=== PATIENT | female | born 1980 | race Caucasian/White ===

== ENCOUNTER 2020-03-25 14:26 | Emergency (ER) | payer OTHER, SELFPAY ==
--- NOTE | ~2020-03-25 | XR_ITS ---
EXAMINATION: XR ribs RT 2V DATE: 03/25/2020 15:07 INDICATION: Right chest pain. TECHNIQUE: 3 views of the right ribs were obtained. COMPARISON: None. FINDINGS: There is no right-sided pneumonia, pleural effusion, or pneumothorax. The heart size is nor mal. IMPRESSION: 1. No rib fracture. Reviewed, dictated and finalized at location B. [facility] IMPRESSION: 1. No rib fracture.
[2020-03-25 14:38] VITALS: BP 124/88; PULSE 81; RESP 18; TEMP 36.4; O2SAT 100
--- NOTE | 2020-03-25 14:49 | ED.GENADULT ---
HPI - General Adult General Chief complaint: Back Pain/Injury Stated complaint: Flank pain Time Seen by Provider: 03/25/20 14:49 Source: patient and RN notes reviewed Mode of arrival: ambulatory Limitations: no limitations History of Present Illness HPI narrative: 39-year-old female presents concern for right rib pain. Reports the location of the pain changes slightly. She denies any current or new injury or trauma. Reports pain worsened when. She denies she increased her exercise routine. Reports 1 year ago she fell causing pain to that right rib area, however that pain resolved. Denies worsening pain with deep breathing or coughing. She denies nausea, vomiting. She denies fever. Reports occasional right scapula pain without injury. MD complaint: Rib pain Related Data Home Medications Medication Instructions Recorded Confirmed No Home Medications 03/25/20 03/25/20 Allergies Allergy/AdvReac Type Severity Reaction Status Date / Time pseudoephedrine AdvReac Palpitation Verified 03/25/20 14:49 s Review of Systems Review of Systems: Narrative: CONSTITUTIONAL: Denies malaise, chills, sweats, or fever. CARDIOVASCULAR: Denies chest pain, palpitations, or edema. RESPIRATORY: Denies cough or dyspnea. GASTROINTESTINAL: Denies abdominal pain, nausea, vomiting, diarrhea GENITOURINARY: Denies dysuria or hematuria. SKIN: Denies bruising, redness, open skin MUSCULOSKELETAL: Reports right rib pain All systems reviewed & are unremarkable except as noted in HPI and below PMFSH Family History Family History (Updated 07/29/10 @ 10:32 by DOCTOR UNKNOWN) Other Diabetes mellitus Family history of mental disorder Family history of seizure disorder Hypertension Social History Social History Alcohol intake: current Comments At time of signature, agree with nursing past medical, surgical, social and family history. There is no relevant family history pertinent to the presenting complaint Exam Narrative: Exam Narrative: GENERAL: Well-appearing, well-nourished, and in no acute distress. HEAD: Normocephalic, atraumatic. EYES: PERRLA, conjunctivae clear ENT: Nares clear. Mucous membranes moist. NECK: Supple. CHEST: No respiratory distress. Clear to auscultation. No bony deformities, no asymmetry. Speaks in full sentences. HEART: Regular rate and rhythm. No murmur heard. ABDOMEN: Soft, nontender, nondistended, normal active bowel sounds, no palpable masses. Musculoskeletal: No rib tenderness upon palpation, no bruising or erythema SKIN: Warm, dry, no rash, abrasion, laceration. NEURO: Alert and oriented x3. PSYCH: Normal mood and affect Course Course Emergency Course: Patient is aware of diagnosis, understands and agrees to treatment plan. Anticipatory guidance given. Patient agrees to follow-up as directed and is aware of reasons to seek care at the emergency department. Portions of this record may have been created with voice recognition software Vital Signs Vital signs: Vital Signs Temperature 97.5 F L 03/25/20 14:38 Pulse Rate 81 03/25/20 14:38 Respiratory Rate 18 03/25/20 14:38 Blood Pressure 124/88 03/25/20 14:38 Pulse Oximetry 100 03/25/20 14:38 Temperature 97.5 F L 03/25/20 14:38 Pulse Rate 81 03/25/20 14:38 Respiratory Rate 18 03/25/20 14:38 Blood Pressure 124/88 03/25/20 14:38 Pulse Oximetry 100 03/25/20 14:38 Reviewed. Patient has been instructed to follow up with her primary care provider within the next week regarding her elevated blood pressure today. Medical Decision Making MDM Narrative Medical decision making narrative: Exam findings and imaging show no acute concerns or changes; patient is non-toxic appearing and is in no distress. Patient is appropriate for outpatient treatment and follow-up. Vital Signs Vital Signs: Vital Signs Temperature 97.5 F L 03/25/20 14:38 Pulse Rate 81 03/25/20 14:38 Respiratory Rate 18 03/25/20 14:38
== END 2020-03-25 15:28 | disposition home or self-care (01) ==
PROVIDERS: Emergency Provider Nurse Practitioner
DX: R10.11 Right upper quadrant pain (principal); E28.2 Polycystic ovarian syndrome
CPT/HCPCS: 71100; 99213; G0463

== ENCOUNTER 2021-03-29 09:17 | Emergency (ER) | payer OTHER, SELFPAY ==
--- NOTE | ~2021-03-29 | XR_ITS ---
EXAMINATION: XR chest 2V DATE: 03/29/2021 10:18 INDICATION: Cough TECHNIQUE: PA and lateral views of the chest are obtained. COMPARISON: 01/24/2020 FINDINGS: The lungs are free of acute opacities. There is no pleural effusion or pneumothorax. The ca rdiomediastinal silhouette is normal. The visualized bones and soft tissues are unremarkable. IMPRESSION: 1. No acute cardiopulmonary abnormality. Reviewed, dictated and finalized at location A. [employer]
[2021-03-29 09:23] VITALS: BP 127/85; PULSE 109; RESP 16; TEMP 37.6; O2SAT 100
--- NOTE | 2021-03-29 10:11 | ED.URI ---
HPI - URI/Sore Throat General Chief Complaint: Upper Respiratory Infection Stated Complaint: cough with chest pain fever Time Seen by Provider: 03/29/21 09:45 Source: patient and RN notes reviewed Mode of arrival: ambulatory Limitations: no limitations History of Present Illness HPI Narrative: Patient presents today complaining of a 10-day history of cough and sore throat that has been worsening since onset, with a 2-day history of fever up to 101.9. Denies shortness of breath. She has been taking NyQuil and ibuprofen at home without relief. She is fully vaccinated against COVID-19. Denies history of asthma or COPD. She is a non-smoker. MD elicited complaint: fever and cough Related Data Allergies Allergy/AdvReac Type Severity Reaction Status Date / Time pseudoephedrine AdvReac Palpitation Verified 03/25/20 14:49 s Review of Systems Review of Systems: CONSTITUTIONAL: Denies body aches, chills, or sweats.+ Fever EYES: Denies visual changes, redness, or discharge. ENT: Denies rhinorrhea, congestion, or otalgia.+ Sore throat CARDIOVASCULAR: Denies chest pain, palpitations, or edema. RESPIRATORY: Denies dyspnea.+ Cough, chest wall pain GASTROINTESTINAL: Denies abdominal pain, nausea, vomiting, or diarrhea. GENITOURINARY: Denies dysuria or hematuria. SKIN: Denies rash, itching, or wounds. MUSCULOSKELETAL: Denies back pain, joint pain, or myalgia. NEUROLOGIC: Denies headache, numbness, tingling, or weakness. PSYCH: Denies depression or anxiety. [facility] Family History Family History Other Diabetes mellitus Family history of mental disorder Family history of seizure disorder Hypertension Social History Social History Alcohol intake: current Comments At time of signature, I have reviewed and agree with nursing past medical, surgical, social and family history unless otherwise noted. Please see nursing chart for further information. There is no relevant family history pertinent to the presenting complaint Exam Narrative: GENERAL: Well-appearing, well-nourished, and in no acute distress. HEAD: Normocephalic, atraumatic. EYES: EOMI. No redness or drainage. Conjunctivae normal. ENT: Mucous membranes pink and moist. Nares clear. No rhinorrhea. TMs normal bilaterally. Throat normal. Uvula midline. NECK: Normal AROM. Supple. No lymphadenopathy. CHEST: No respiratory distress. Clear to auscultation. HEART: Regular rhythm.+ Tachycardia. No murmur appreciated. Normal peripheral pulses. EXTREMITIES: Normal range of motion. No edema. SKIN: Warm, dry, no rash. Capillary refill normal. Normal skin turgor. NEURO: No focal deficits. Alert and oriented x3. Gait steady. PSYCH: Normal affect. No signs of depression or anxiety. Course Vital Signs Vital signs: Vital Signs Temperature 99.6 F 03/29/21 09:23 Pulse Rate 109 H 03/29/21 09:23 Respiratory Rate 16 03/29/21 09:23 Blood Pressure 127/85 03/29/21 09:23 Pulse Oximetry 100 03/29/21 09:23 Temperature 99.6 F 03/29/21 09:23 Pulse Rate 109 H 03/29/21 09:23 Respiratory Rate 16 03/29/21 09:23 Blood Pressure 127/85 03/29/21 09:23 Pulse Oximetry 100 03/29/21 09:23 Reviewed. Pt has been instructed to follow up with her PCP regarding her elevated blood pressure today. MDM - URI/Sore Throat Differential Diagnosis Differential diagnosis: Likely upper respiratory infection, viral infection, influenza and other (COVID-19, strep throat, pneumonia) Lab Data Attestation: I reviewed the patient's lab results. Labs: Lab Results 03/29/21 Range/Units Unknown POC SARS CoV-2 Ag Negative (Negative) Influenza A Screen Negative Reference Range: Negative Influenza B Screen Negative Reference R
== END 2021-03-29 11:32 | disposition home or self-care (01) ==
PROVIDERS: Emergency Provider Nurse Practitioner; PCP Family Medicine
DX: J40 Bronchitis, not specified as acute or chronic (principal); J06.9 Acute upper respiratory infection, unspecified; Z20.822 Contact with and (suspected) exposure to COVID-19; E28.2 Polycystic ovarian syndrome
CPT/HCPCS: 71046; 87081; 87426; 87804; 87880; 99213; C9803; G0463

== ENCOUNTER 2024-01-04 08:07 | Emergency (ER) | payer OTHER, SELFPAY ==
[2024-01-04 08:16] VITALS: BP 115/88; PULSE 75; RESP 16; TEMP 36.6; O2SAT 100
--- NOTE | 2024-01-04 08:30 | ED.UPPEXIN ---
HPI - Extremity Injury (Upper) General Chief Complaint: Extremity Injury, Upper Stated Complaint: Right arm injury Time Seen by Provider: 01/04/24 08:30 Source: patient, RN notes reviewed and old records reviewed Mode of arrival: ambulatory Limitations: no limitations History of Present Illness HPI narrative: [age] year female [facility] complaint right arm pain for 2 days. Patient states that two nights ago she tripped over her dog in the dark and fell onto a carpeted floor with her upper right arm taking the majority of the fall. patient states the pain is primarily in the posterior upper arm and is worse with weight-bearing. Patient denies numbness, tingling, shoulder pain, elbow pain, wrist pain, prior injury, pertinent medical history. Patient resting comfortably in exam room in no acute distress. Respirations even and nonlabored. Related Data Home Medications Medication Instructions Recorded Confirmed No Home Medications 01/04/24 01/04/24 Allergies Allergy/AdvReac Type Severity Reaction Status Date / Time pseudoephedrine AdvReac Palpitation Verified 01/04/24 08:35 s Review of Systems Review of Systems: All systems reviewed & are unremarkable except as noted in HPI and below Constitutional: Constitutional: Reports no additional constitutional complaints Eyes: Eyes: Reports no additional eye complaints ENT: Reports system reviewed and no additional complaints, except as documented Cardiovascular: Cardiovascular: Reports no additional cardiovascular complaints, Denies chest pain and Denies dyspnea Respiratory: Respiratory: Reports no additional respiratory complaints, Denies cough and Denies dyspnea Musculoskeletal: Musculoskeletal: Reports as per HPI, Denies deformity, Denies limited range of motion, Denies numbness and Reports other (posterior right upper arm pain) Neurologic: Reports system reviewed and no additional complaints, except as documented Psychiatric: Psychiatric: Reports no additional psychiatric complaints PMFSH Family History Family History Other Diabetes mellitus Family history of mental disorder Family history of seizure disorder Hypertension Social History Social History Alcohol intake: current Comments At the time of my signature, I reviewed and agree with the nursing past medical, surgical, social, and family history. There is no relevant family history pertinent to the patient complaint. Exam Const: General: cooperative, healthy appearing, comfortable, no acute distress, alert and well nourished Nutritional Appearance: well nourished Orientation/consciousness: patient oriented x3 Limitations: no limitations HENMT: Head: normal to inspection Ears: external ears normal Face/Nose/Sinus: Normal external nose present, Normal nares present, normal facial exam, No erythema and No edema Face and sinus: normal facial exam, no erythema and no edema Mouth: Yes Normal oral and palatal mucosa present Eyes: General: appearance normal, both eyes and all related structures Neck: Neck: normal visual inspection, full ROM and no meningeal signs Chest: Chest palpation & inspection: normal inspection of the chest Resp: Effort & Inspection: normal respiratory effort and able to speak in complete sentences Auscultation: clear to auscultation bilaterally Cardio: Jugular venous distension: no JVD Rate: regular rate Rhythm: regular rhythm Back/Spine/Pelvis: Cervical Spine: cervical ROM normal Skin: General skin exam: normal color, no rashes or lesions noted and turgor normal Neuro: General: patient oriented x3, gait normal, moves all extremities and no meningeal signs Speech: normal speech Gait exam (Neuro): Normal gait present Extrem: General: normal to inspection and capillary refill normal Right upper extremity: normal capillary refill an
== END 2024-01-04 09:00 | disposition home or self-care (01) ==
PROVIDERS: Emergency Provider Nurse Practitioner Family; PCP Hospitalist
DX: S49.81XA Other specified injuries of right shoulder and upper arm, initial encounter (principal); W01.0XXA Fall on same level from slipping, tripping and stumbling without subsequent striking against object, initial encounter; E28.2 Polycystic ovarian syndrome
CPT/HCPCS: 99212; G0463

== ENCOUNTER 2024-09-23 10:48 | Emergency (ER) | payer OTHER, SELFPAY ==
--- NOTE | ~2024-09-23 | XR_ITS ---
Right foot Technique: AP, oblique, and lateral views were obtained. Clinical History: Metatarsal pain Findings: No acute fracture or dislocation is seen. Osseous alignment is anatomic. Joint spaces are p reserved without erosive or degenerative change. Soft tissues are unremarkable. Impression: Unremarkable right foot radiographs. Reviewed, dictated and finalized at [facility]. Impression: Unremarkable right foot radiographs.
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
--- OUTSIDE RECORDS SUMMARY | 2024-09-23 10:49 | XMS_ITS | Clinical Summary ---
Author Organization [facility] [place] [address] [facility] lto Address [address] [place] [address] Care Team Providers Care Grinding Room Supervisor Name Role Phone Simone Stapleton MD Primary Care Provider [phone] Allergies Active Allergy Reactions Criticality Noted Date [...] therapy Assessment & Plan (04/07/2021 9:35 AM OUTSIDE SALES ENGINEER): Reviewed US. Patient given contact information to follow up with gynecology. 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 -has been progressing, patient is unable to hold pencils or knives for cooking -will check routine labs today, concern for vitamin defiency vs elevated Ca. Encounters Date Type Department Care Team Description 09/06/2024 9:30 AM CDT Ancillary Procedure [facility] [address] [place] [address] Encounter for screening mammogram for malignant neoplasm of breast 09/06/2024 9:00 AM CDT Office Visit [facility] [address] [place] [address] Jaswant Leblanc, Encounter for annual routine gynecological examination (Primary Dx); Encounter for screening mammogram for malignant neoplasm of breast; Menorrhagia with regular cycle 09/06/2024 [facility] [address] [place] [address] Jaswant Leblanc DO Screening mammogram, encounter for (Primary Dx) from Last 3 Months Immunizations Immunization Administration Dates Next Due Influenza, Quadrivalent, Rec ombinant, Egg Free, Preservative Free, Intramuscular 02/13/2020 Influenza, Quadrivalent, Spl it, Preservative Free, Intramuscular 02/27/2022 Influenza, Unspecified 01/31/2023(Deferr ed: Patient Refused),01/24/2023(Deferred: Patient Refused),01/16/2023(Deferred: Patient Refused),12/17/2020,12/18/2019, 019(Deferred: Patient Refused) PPD TEST 11/23/2017,12/08/2015,08/05/2015 Surgical History Surgery Date Site/Laterality Comments KNEE SURGERY Left KNEE ARTHROSCOPY W/ LATERAL RELEASE Medical History Medical History Date Comments PCOS (polycystic ovarian syndrome) 2013 Dizziness 2018 Menstrual problem October2023 Family History Medical History Relation Name Comments Hypertension Father Moncho Prostate cancer Father Moncho Ovarian cancer Maternal Grandmother Hypertension Mother Miesha Depression Sister Christine Learning disabilities Sister Christine Mental illness Sister Christine Relation Name Status Comments Father Moncho Alive Maternal Grandmother Mother Miesha Alive Sister Christine Social History Tobacco Use Types Packs/Day Years [...] on file Legal Sex Female 7:01 PM OUTSIDE SALES ENGINEER Gender Identity Not on file Sexual Orientation Not on file Occupation Industry Job Start Date Job End Date Not on file Not on file Not on file Not on file Obstetrics History Para Term AB IAB SAB Ectopic Multiple Livin g Live Births 1 1 1 0 1 1 Date Outcome GA Total Labor Labor/2nd/3rd Weight Sex Type Anes PTL Alethea A1 A5 Name Clin 2007 Term 38w 0d 3.515 kg (7 lb 12 oz) M Vag-S pont Living Last Filed Vital Signs Vital Sign Reading [...] 09/06/2024 10:06 AM CDT Plan of Treatment Health Maintenance Due Date Last Done Comments DTaP/Tdap/Td Vaccine (1 - Tdap) 1993 Varicella Vaccines (1 of 2 - 13+ 2-dose series) 1995 Hepatitis B Screening 2000 Cervical Cancer Screening 04/07/2022 04/07/2021 Depression Screening 10/23/2024 10/24/2023, 08/05/2021, 04/07/2021, Additional history exists Influenza Vaccine (Season Ended) 2024 02/27/2022, 12/17/2020, 02/13/2020, Additional history exists Breast Cancer Screening-Mammogram 09/06/2025 09/06/2024, 09/06/2023, 08/31/2022 Regular Well Visit/Exam 18-64 09/06/2025 09/06/2024, 08/29/2023, 08/26/2022 Hepatitis C Screening Completed 04/16/2020 HPV Vaccines Aged Out No longer eligi ble based on patient's age to complete this topic Pneumococcal vaccine <65 Aged Out No longer eligible based on patient's age to complete this topic Procedures Procedure Name Priority Date/Time Associated Diagnosis Comments SCREENING MAMMOGRAM BILATERAL W CULLEN Schedule Routine, Read Routine (OP Routine) 09/06/2024 10:05 AM CDT Encounter for screening mammogram for malignant neoplasm of breast PAP WITH REFLEX TO HIGH RISK HPV Routine 04/07/2021 10:17 AM OUTSIDE SALES ENGINEER HEPATITIS C ANTIBODY Routine 04/16/2020 10:54 AM OUTSIDE SALES ENGINEER Abdominal pain, RUQ from Last 3 Months or Most Recently Relevant to Health Maintenance Results * Screening Mammogram Bilateral W Cullen (09/06/2024 10:05 AM CDT) Anatomical Region Laterality [...] AM CDT EXAMINATION: SCREENING MAMMOGRAM BILATERAL W CULLEN ORDERING HEALTHCARE PROVIDER: JASWANT LEBLANC HISTORY: Routine screening mammography. COMPARISON: 09/06/2023, [...] has been no suspicious interval change. us Jaswant Leblanc DO IMG MAMMO PROCEDURES Fi nal Result * Pap with reflex to High Risk HPV (04/07/2021 10:17 AM OUTSIDE SALES ENGINEER) Pap test 04/07/2021 10:1 7 AM OUTSIDE SALES ENGINEER 04/07/2021 10:17 AM OUTSIDE SALES ENGINEER Narrative 04/09/2021 1:11 PM OUTSIDE SALES ENGINEER [facility] Department of Pathology [address] [place] [id number] Final Report with Addendum Note to [...] questions and explain the details. Patient Name: NORMA RENEE [address]: [address] [place] [address] Gender: F : 1980 (Age: 40) Service: Laboratory Location: Lab [facility] #: [id number] Patient Type: Ref Lab Taken: 04/07/2021 Received: 04/07/2021 Accessioned:: 04/08/2021 Reported: 04/09/2021 Physician(s): Iris VillalpandoNElaine Tyson Diagnosis: Source of Specimen: Imaged Thinprep Pap Test plus HPV - Lead Sprinkler Cytologic Material Specimen Adequacy: - Specimen satisfactory for interpretation; endocervical/transformation zone component absent or insufficient General Category: - Negative for intraepithelial lesion or malignancy Interpretation/Results: - Numerous inflammatory cells present STARLA Gannon(ASCP) Report Electronically Reviewed and Signed Out By DAO GannonASC) 04/09/2021 13:11:56 Addenda: HPV Test Interpretation NEGATIVE for types 16, 18, 31, 33, 35, 39, 45, 51, 52, 56, 58, 59, 66 and 68. Test performed utilizing Gen-Probe Aptima assay. STARLA Gannon(ASC) Report Electronically Reviewed and Signed Out By STARLA Gannon(ASC) 04/09/2021 09:17:13 Specimen(s) Received: A: Imaged Thinprep Pap Test plus HPV - Lead Sprinkler Cytologic Material Clinical History: Last Menstrual Period: [...] determined by the Surgical Pathology Department at [facility] as part of an ongoing ict quality assurance engineer program and in compliance with federally mandated [...] characteristics determined by the Surgical Pathology Department [facility]. It has not been cleared or approved by the U. S. Food and Drug Administration. Starr Grimes NP LAB CYTOLOGY ORDERABLES Fin al Result * Hepatitis C antibody (04/16/2020 10:54 AM OUTSIDE SALES ENGINEER) Hep C Ab Nonreactive Nonreactive J LUIS [...] 2019. Blood specimen (specimen) 04/16/2020 10:54 AM OUTSIDE SALES ENGINEER 04/16/2020 4:31 PM OUTSIDE SALES ENGINEER Simone Stapleton MD LAB MICROBIOLOGY - GENERA L ORDERABLES Final Result J LUIS MIXON [id number] [address] Department [place] [address] from Last 3 Months or Most Recently Relevant to Health Maintenance Insurance [facility] Care Teams Grinding Room Supervisor Relationship Specialty Start Date End Date Simone Stapleton MD [address] [place] [address] PCP - General Family Medicine 04/16/20
--- OUTSIDE RECORDS SUMMARY | 2024-09-23 10:49 | XMS_ITS | Clinical Summary ---
Author Organization [facility] Address [address] [place] [phone] Phone Care Team Providers Care Advertising Dispatch Clerks Supervisor Name Role Phone Provider, None Primary Care Provider Unavailabl e Allergies Active Allergy Reactions Criticality Noted Date Comments Bisacodyl Palpitations 01/10/2019 Medications No known medications Family History Medical History Relation Name Comments No Known Problems Father No Known Problems Mother Relation Name Status Comments Father Alive Mother Alive Social History Tobacco Use Types Packs/Day Years Used Date Smoking Tobacco: Never Smokeless Tobacco: Never Alcohol Use Standard Drinks/Week Comments Not Currently 0 (1 standard drink = 0.6 oz pur e alcohol) AUDIT-C Answer Date Recorded Frequency of Alcohol Consumption Never 01/10/2019 Average Number of Drinks Not on file 019 Frequency of Binge Drinking Not on file 12/18 Sexually Active Control Partners Comments Not Currently Comments Unknown Sex and Gender Information Value Date Recorded Sex Assigned at Not on file Legal Sex Female 7:07 PM CDT Gender Identity Not on file Sexual Orientation Not on file Last Filed Vital Signs Vital Sign Reading Time Taken Comments Blood Pressure 112/66 01/10/2019 2:33 PM CDT Pulse 73 01/10/2019 2:33 PM CDT Temperature 36.9 C (98.4 F) 01/10/2019 2:33 PM CDT Respiratory Rate 16 01/10/2019 2:33 PM CDT Oxygen Saturation 98% 01/10/2019 2:33 PM CDT Inhaled Oxygen Concentration - - Weight 52.2 kg (115 lb) 01/10/2019 2:33 PM CDT Height 157.5 cm (5' 2) 01/10/2019 2:33 PM CDT Body Mass Index 21.03 01/10/2019 2:33 PM CDT Plan of Treatment Health Maintenance Due Date Last Done Comments Hepatitis C Virus (HCV) Screening 1982 TdaP Immunization 1982 Hepatitis B Immunization (1 of 3 - 19+ 3-dose series) 2001 Pap Smear 2003 Cervical Cancer Screening (CCS) 2012 HPV/Cotest 2012 Discussion re Starting/Frequency of Mammograms 2022 Influenza Immunization (#1) 2023 SARS-COV-2 Immunization (3 - 2023- season) 2023 08/03/2020, 07/13/2020 Respiratory Syncytial Virus (RSV) Immunization (Adult) (1 - 1-dose 75+ series) 2057 Meningococcal Immunization (ACWY) Aged Out No longer eligible b ased on patient's age to complete this topic Pneumococcal Immunization Combined Aged Out No longer eligible b ased on patient's age to complete this topic Rotavirus Immunization Aged Out No lo nger eligible based on patient's age to complete this topic Insurance Care Teams Advertising Dispatch Clerks Supervisor Relationship Specialty Start Date End Date Provider, None LONG PCP - General 01/10/19
--- OUTSIDE RECORDS SUMMARY | 2024-09-23 10:53 | XMS_ITS | Continuity of Care Document ---
Author Name [facility] Organization [facility] Care Team Providers Care Steam Bone Press Tender Name Role Phone [facility] Unavailable Unavailable Problems Combined list of problems from Department of Defense and Veterans Affairs facilities. It does not include entries that were removed or entered in error. Problem Status Onset Date Problem Type Date of Resolution Comments Source Localized swelling, mass and lump, left lower limb Active Condition DoD joint pain in the left knee Active Condition DoD ADJUSTMENT DISORDER Active Condition Do D DYSMENORRHEA Active Condition DoD CONSTIPATION Active Condition DoD POLYCYSTIC OVARIAN SYNDROME Active Condition DoD RUPTURED OVARIAN CYST RIGHT Inactive Condition DoD CYSTITIS Inactive Condition DoD URINARY TRACT INFECTION Inactive Condition DoD abdominal pain in the right lower belly (RLQ) Inactive Condition DoD visit for: administrative purpose Inactive Condition DoD FEMALE INFERTILITY Active Condition DoD Macules And Papules Inactive Condition D oD COSTOCHONDRITIS (TIETZE'S SYNDROME) Active Condition DoD BACTERIAL VAGINOSIS Inactive Condition D oD Preventive Medicine Establ. Patient Checkup Adult 18-39 Inactive Condition DoD Cervical Pap Smear Inactive Condition Do D irregular length of menstrual periods Active Condition DoD joint pain, localized in the knee Active Condition DoD Medications Combined list of outpatient medications from Department of Defense and Veterans Affairs facilities.Medications provided include 1) outpatient medications from the last 15 months, and 2) patient-reported medications. Medication Details Route Status Patient Instructions Prescription Expires Prescription Number Last Dispense Date Ordering Provider Order Date Order Qty Source sulfamethox azole-trime thoprim 800 mg-160 mg oral tablet 0 total refill(s ) Ordered 2019 No Facilit y Access Allergies, Adverse Reactions, Alerts Combined list of allergies from Department of Defense and Veterans Affairs facilities. It does not include entries that were removed or entered in error. Substance Category Reaction Severity Reaction type Status Date Reported Comments Source No Known Allergies Drug allergy (disorder) active 06/18/2010 [facility] [place] Immunizations Combined list of available immunizations from the Department of Defense and Veterans Affairs facilities. Immunization Series Date Given Administered By Site Reaction Lot Number CVX Code Drug Perl Software Engineer Status Comments Source influenza, recombinant, quadrivalent, injectable, preservative free 2019 ALUL, () Not Given influenza , recombina nt, quadrival ent,injec table, preservat justine free DoD tuberculin purified protein derivative 2017 zzLef t Arm [id number] sanofi pasteur complet ed Patient Tolerance : Negative Ambulat ory Pharmac y tuberculin skin test; purified protein derivative solution, intradermal 1 2017 INA PERALTA [id number] 96 Sanofi Pasteur ([facility]) complet ed tuberculi n skin test; purified protein derivativ e solution, intraderm al DoD tuberculin purified protein derivative 2015 zzLef t Arm [id number] 96 sanofi pasteur complet ed Patient Tolerance : Negative Ambulat ory Pharmac y tuberculin skin test; purified protein derivative solution, intradermal 0 2015 JUDY DINERO V [id number] 96 Sanofi Pasteur ([facility]MC) complet ed tuberculi n skin test; purified protein derivativ e solution, intraderm al DoD tuberculin purified protein derivative 2015 zzLef t Arm [id number] 96 sanofi pasteur complet ed Patient Tolerance : Negative Ambulat ory Pharmac y tuberculin skin test; purified protein derivative solution, intradermal 0 2015 PRINCESS VARELA [id number] 96 Sanofi Pasteur ([facility]MC) complet ed tuberculi n skin test; purified protein derivativ e solution, intraderm al DoD Encounters Combined list of: 1) Encounters from Department of Veterans Affairs facilities going backup to the last 18 months, not all VA inpatient encounters are included; 2) Encounters from the Department of Defense facilities going backup to 280 months. Location Location Details Encounter Type Encounter Number Reason For Visit Attending Provider ADM Date DC Date Status Disposition Source [address] [place] [address] Sc[facility]APARRO [place] [facility] Team 3) OUTPATIENT [id number] lt knee [id number] DIANE CHASE 06/18 Released w/o Limitations [address] [place] [address] [facility]Renita [place] [facility] Team 3) [address] [place] [address] [facility]ARR[facility]Ido tt [facility] Team 3) TELE CONSULT [id number] rad results GIANFRANCO FERGUSON 07/[address] [place] [address] [facility] [facility] Team 3) [place]GPT [place] Commit[place]) OUTPATIENT [id number] PAP wellwom an/labs JUAN BURKS A 01/21 Released w/o Limitations [place]) [place]PATIENT [id number] Annual Pap smear/l abs ERIK MATHIAS 05/27 Released w/o Limitations [place]) [place]PATIENT [id number] LUMP ABOVE BREAST/ MEDS STEVE, DEV KAITLYNN 06/08 Released w/o Limitations [place]) OUTPATIENT [id number] mole concern NEVILLE LOMELI 01/24 Released w/o Limitations [place] OUTPATIENT [id number] FERTILI TY ISSUES. MISTI CASILLAS 09/12 Released w/o Limitations [place] [facility]) TELE CONSULT [id number] Notes Entered by: HIRAL GREEN 21 Sep 2012 1217 ------- ------- ------- ------- -- CHING Yancey 09/21 [facility](O b[facility]) [facility]/ [facility]) OUTPATIENT [id number] FEMALE RAYA ANDRE 09/28 Released w/o Limitations [facility](O [facility]) [facility]) TELE CONSULT [id number] Notes Entered by: CHING DELGADO 30 Oct 2012 1523 ------- ------- ------- ------- -- Test results RAYA TRIMBLE 10/30 [facility](O b[facility]) [facility](Cynthia rgency Services) OUTPATIENT [id number] FLORECITA BRAUN S 11/06 Released w/o Limitations [facility](E mergenc y Service s) [facility]) OUTPATIENT [id number] follow up for fertili ty issues RAYA TRIMBLE 12/07 Released w/o Limitations [facility]) [place] OUTPATIENT [id number] DIARRJUAN LOW 12/14 Released w/o Limitations [place] OUTPATIENT [id number] ANXIETY HALEY KOCH 07/31 [place] Limitations [place] TELE CONSULT [id number] Notes Entered by: PETE VARELA 31 Jul 2013 1507 ------- ------- ------- ------- -- Med refill ADONIS VARELA 07/31 [place] TELE CONSULT [id number] Notes Entered by: PETE VARELA 13 Sep 2013 0633 ------- ------- ------- ------- -- US results ADONIS VARELA 09/13 [place] [facility]) OUTPATIENT [id number] Pelvic pain RADHA SHEPPARD 10/02 Released w/o Limitations [facility]) [facility]) OUTPATIENT [id number] US pt on clomid RADHA SHEPPARD 10/15 Released w/o Limitations [facility]) [place]PATIENT [id number] SEVERE STOMACH PAIN CARRIE MENESES 11/07 [place]ased [place] Limitations [place] [id number] gpt/fu ED visit: chest pains/2 0mins/m edlist CHAYA STRAUSS 03/06 [place]ased [place] Limitations [place]) [place] [id number] KNEE INJURY JUAN BURKS A 06/11 [place]ased [place] Limitations [place] TELE CONSULT [id number] Notes Entered by: BETTIE BEATTY 18 Jun 2014 0911 ------- ------- ------- ------- -- F/U THONY CRUZ 06/18 Referred for Appointment [place]) [place]IENT [id number] FOLLOW UP KNEE JUAN BURKS A 07/01 Released [place]/o Limitations [place]) [place] [id number] WELL WOMAN/P AP BURKSJUAN A 07/30 [place]ased [place] Limitations [place]) [place] [id number] LT KNEE PAIN JUAN BURKS A 08/09 [place]ased [place] Limitations [place] [id number] Pas entered the order RICCO BUTLER A 09/19 [place]ased [place]/o Limitations [place] [id number] F/U appt RICCO BUTLER A 10/22 [place]ased w/o Limitations [place]) [place] [id number] COLD SX X 2 MONTHS KIMMIENIRAJJUAN A 08/03 [place] Limitations [place] [id number] Notes Entered by: BERTRAND VARELA 05 Aug 2015 1136 ------- ------- ------- ------- -- PPD PRINCESS VARELA 08/04 [place]ased w/o Limitations [place] [facility] MHP Blue) OUTPATIENT [id number] Notes Entered by: JUDY JOSUE V 08 Dec 2015 1339 ------- ------- ------- ------- -- JUDY MEADOWS V 12/07 Released w/o Limitations [facility] Multi MHP Blue) [facility] Multi MHP Green) TELE CONSULT [id number] Notes Entered by: Rachel SOLANO 19 Jul 2016 0911 ------- ------- ------- ------- -- blood work YOSELYN MARTIN 07/19 Referred for Appointment [facility] Multi MHP Green) [facility] Multi MHP Green) TELE CONSULT [id number] Notes Entered by: WALE SY 02 Sep 2016 1355 ------- ------- ------- ------- -- Wants seen today for pos very painful sinus infecti on KIMANIEVIEJADYN 09/02 Released to Self Care [facility] Multi MHP Green) [facility]HP Blue) OUTPATIENT [id number] pcos/fe male concern s RAJIV HERNANDEZ 06/10 Released w/o Limitations [facility] Multi MHP Blue) [facility] Multi MHP Blue) TELE CONSULT [id number] Notes Entered by: Rachel SOLANO 15 Aug 2017 0942 ------- ------- ------- ------- -- YOSELYN Rubio 08/15 Referred for Appointment [facility] Multi MHP Blue) [facility] Multi MHP Blue) OUTPATIENT [id number] lump-le ft veronica DILLONHOWARD GIL Consuelo 10/12 Released w/o Limitations [facility] Multi MHP Blue) [facility] Multi MHP Blue) TELE CONSULT [id number] Notes Entered by: Rachel SOLANO 17 Oct 2017 0943 ------- ------- ------- ------- -- YOSELYN Mcmanus 10/17 Referred for Appointment [facility] Multi MHP Blue) [facility] Multi MHP Blue) TELE CONSULT [id number] Notes Entered by: JENNIE AU 25 Oct 2017 1511 ------- ------- ------- ------- -- YOSELYN Martini 10/25 Referred for Appointment [facility] Multi MHP Blue) [facility] Multi MHP Blue) OUTPATIENT [id number] Notes Entered by: DENNIS LUGO 23 Nov 2017 1428 ------- ------- ------- ------- -- INA Lema 11/23 Released w/o Limitations [facility] Multi MHP Blue) [facility] Multi MHP Blue) OUTPATIENT [id number] vertigo /dizzy HERNANDEZ, RAJIV Alexandra 12/16 Released w/o Limitations [facility] Multi MHP Blue) [facility] Multi MHP Blue) OUTPATIENT [id number] 9 injurie d JOSHUA Arias Lul 02/28 Released w/o Limitations [facility] Multi MHP Blue) [facility] Multi MHP Blue) TELE CONSULT [id number] Notes Entered by: WALE SY 21 Aug 2018 0741 ------- ------- ------- ------- -- Wants seen today for pelvic pain YOSEYLN MARTIN 08/21 Referred for Appointment [facility] Multi MHP Blue) [facility] Multi MHP Blue) OUTPATIENT [id number] 5 menstra HOWARD Soria 08/21 Released w/o Limitations [facility] Multi MHP Blue) 0055A-375 [facility] Between Visit [id number] 11/07 Discharge Disposition: Home or Self Care 0055A-3 [facility] 0055A-[facility] Between Visit [id number] 11/07 Discharge Disposition: Home or Self Care 0055A-[facility] 0055A-[facility] Outpatient [id number] ZENIA HARGROVE 11/22 Discharge Disposition: Home or Self Care 0055A-3 [facility] 0055[facility] Outpatient [id number] ZENIA HARGROVE 11/22 Discharge Disposition: Home or Self Care 0055A-3 [facility] 0055A-[facility] Outpatient [id number] ZENIA HARGROVE 11/22 Discharge Disposition: Home or Self Care 0055A-3 [facility] Procedures Combined list of: 1) Procedures from Department of Veterans Affairs facilities [facility], not all VA non-surgical procedures are included; 2) All procedures from the Department of Defense facilities. Procedure Procedure Type Code Date Perfomer Comments Sour e No data available for this section Ambulatory Pharmacy COLLECTION OF VENOUS BLOOD BY VENIPUNCTURE [facility] ULTRASOUND, PELVIC (NONOBSTETRIC), REAL TIME WITH IMAGE DOCUMENTATION; LIMITED OR FOLLOW-UP (EG, FOR FOLLICLES) [facility] SKIN TEST; TUBERCULOSIS, INTRADERMAL [facility] SKIN TEST; TUBERCULOSIS, INTRADERMAL [facility] SKIN TEST; TUBERCULOSIS, INTRADERMAL [facility] PHYSICAL THERAPY RE-EVALUATION [facility] THERAPEUTIC PROCEDURE, 1 OR MORE AREAS, EACH 15 MINUTES; THERAPEUTIC EXERCISES TO DEVELOP STRENGTH AND ENDURANCE, RANGE OF MOTION AND FLEXIBILITY [facility] HEALTH&BEHAV ASSESSMENT (EG, HEALTH-FOC CLINICAL INTERVIEW, BEHAVIORAL OBSERVATIONS, PSYCHOPHYSICOLOGICAL MONITOR, HEALTH-ORIENT QUESTIONNAIRES), EA 15 MIN [id number] W THE PATIENT; INIT ASSESSMENT [facility] Skin Test Anergy Tuberculin Intradermal Skin Test Anergy Tuberculin Intradermal [id number] INA WYLIE IPPD; Series #: 1; .1 mL; ID; Left Arm; Mfg: Sanofi Pasteur; Lot: [id number]; VIS given. [facility] Skin Test Anergy Tuberculin Intradermal Skin Test Anergy Tuberculin Intradermal 37847 016 JUDY DINERO V IPPD; Series #: 1; .1 mL; ID; Left Arm; Mfg: Sanofi Pasteur; Lot: [id number]; VIS given. [facility] Skin Test Anergy Tuberculin Intradermal Skin Test Anergy Tuberculin Intradermal 39480 016 PRINCESS VARELA IPPD; Series #: 1; .1 mL; ID; Left Arm; Mfg: Sanofi Pasteur; Lot: [id number]; VIS given. [facility] Physical Therapy: ___ Se ion Segments, 15 Minutes Each Physical Therapy: ___ Session Segments, 15 Minutes Each [id number] [facility] Physical Medicine Physical Therapy Re-Evaluation Physical Medicine Physical Therapy Re-Evaluation [address] [facility] Physical Therapy: ___ Se ion Segments, 15 Minutes Each Physical Therapy: ___ Session Segments, 15 Minutes Each [id number] [facility] Physical Medicine Physical Therapy Evaluation Physical Medicine Physical Therapy Evaluation [id number] [facility] Pelvic Ultrasound Follow-Up Study Pelvic Ultrasound Follow-Up Study [id number] [facility] Health And Behav A e mt Each 15 Min Initial A e ment Health And Behav Assessmt Each 15 Min Initial Assessment [id number] [facility] Social History Combined list of available smoking, tobacco, and other social history from Department of Defense and Veterans Affairs facilities. Social History Type Response Date Comment Sourc e Sex Representation Female (finding) 08/30/2019 Unknown Organization Sexual Orientation Ambula tory Pharmacy Gender identity Ambulator y Pharmacy This section is an empty social history section. [facility] Assessment and Plan Combined list of future care activities from Department of Defense and Veterans Affairs facilities (e.g., assessment and plan notes, appointments, orders, and referrals). Additional future care activities may be listed in the Plan of Care section. Result Assessment and Plan Date Source Assessment and Plan No data available for this section 09/23/2024 Ambulatory Pharmacy Functional Status Combined list of recent functional and cognitive assessments recorded at Department of Defense and [facility] Affairs ([place] Functional [place] Measurement (FIM) Scale: 1 = Total Assistance (Subject = 0% +), 2 = Maximal Assistance (Subject = 25% +), 3 = Moderate Assistance (Subject = 50% +), 4 = Minimal Assistance (Subject = 75% +), 5 = Supervision, 6 = Modified [place] (Device), 7 = Complete [place] (Timely, Safely). Assessment Date/Time Source Assessment Type Assessment Skill Assessment Score Assessment Details No data available for this section
[2024-09-23 10:55] VITALS: BP 136/86; PULSE 96; RESP 16; TEMP 36.6; O2SAT 100
--- NOTE | 2024-09-23 11:16 | ED_ITS ---
HPI - General Adult General Chief complaint: Extremity Injury, Lower Stated complaint: Fall Injury/Right Foot Source: patient Mode of arrival: ambulatory Limitations: no limitations History of Present Illness HPI narrative: Patient presents for evaluation report. Symptom onset yesterday. She tripped something in the yard and heard a crack in the right foot. She reports 7/10 pain in the foot since that time. Pain is worse with weight-bearing and movement. She has not taken any medication to assist with her symptoms. Related Data Home Medications ?Medication ?Instructions ?Recorded ?Confirmed ?Last Taken ?Type No Home Medications 01/04/24 09/23/24 Unknown History Allergies Allergy/AdvReac Type Severity Reaction Status Date / Time pseudoephedrine AdvReac Palpitation Verified 09/23/24 10:59 s Review of Systems Review of Systems: CONSTITUTIONAL: Denies fever, chills, or sweats. EYES: Denies visual changes, redness, or discharge. ENT: Denies rhinorrhea, congestion, sore throat, or otalgia. CARDIOVASCULAR: Denies chest pain, palpitations, or edema. RESPIRATORY: Denies cough or dyspnea. GASTROINTESTINAL: Denies abdominal pain, nausea, vomiting, or diarrhea. GENITOURINARY: Denies dysuria or hematuria. SKIN: Denies rash or itching. MUSCULOSKELETAL: Reports right foot pain and swelling NEUROLOGIC: Denies headache, numbness, dizziness, or weakness. PSYCHIATRIC: Denies anxiety or depression. PMFSH Past Medical History Medical History No pertinent past medical history Surgical History Surgical History No pertinent past surgical history Family History Family History Other Diabetes mellitus Family history of mental disorder Family history of seizure disorder Hypertension Social History Social History Smoking status: Never smoker Alcohol intake: current Gender identity (if verbalized by the patient): Female Spiritual care concerns: No Exam Narrative: GENERAL: Well-appearing, well-nourished, and in no acute distress. HEAD: Normocephalic, atraumatic. EYES: PERRLA and EOMI. ENT: Nares clear, no rhinorrhea or epistaxis. Mucous membranes moist. Oropharynx without tonsillar hypertrophy exudate or other lesions. Bilateral TMs pearly townsend nonbulging NECK: Supple. No adenopathy or masses. No carotid bruits or JVD CHEST: Clear to auscultation. No respiratory distress. No wheezes rales or rhonchi HEART: Regular rate and rhythm. No murmur heard. Normal peripheral pulses. ABDOMEN: Soft, nontender, nondistended, normal active bowel sounds. EXTREMITIES: Able to dorsi and plantar flex foot. There is tenderness the lateral aspect of right foot SKIN: Warm, dry, no rash. NEURO: No focal deficits. Alert and oriented x3. PSYCH: Normal mood and affect. Course Course Emergency Course: This is a 44-year-old female that presented for right foot. X-ray negative for fracture. Provided Rk wrap. She declined prescription for analgesics. Advised on RICE therapy. NSAIDs for pain. Follow-up with primary provider. Go to ER for worsening symptoms. Patient in agreement with plan of care. Level of Care: Express Care Visit Vital Signs Vital signs: Vital Signs Temperature 36.6 C 09/23/24 10:55 Pulse Rate 96 09/23/24 10:55 Respiratory Rate 16 09/23/24 10:55 Blood Pressure 136/86 09/23/24 10:55 Pulse Oximetry 09/23/24 10:55 Oxygen Delivery Room Air 09/23/24 10:55 Temperature 36.6 C 09/23/24 10:55 Pulse Rate 96 09/23/24 10:55 Respiratory Rate 16 09/23/24 10:55 Blood Pressure 136/86 09/23/24 10:55 Pulse Oximetry 09/23/24 10:55 Oxygen Delivery Room Air 09/23/24 10:55 Medical Decision Making Vital Signs Vital Signs: Vital Signs Temperature 36.6 C 09/23/24 10:55 Pulse Rate 96 09/23/24 10:55 Respiratory Rate 16 09/23/24 10:55 Blood Pressure 136/86 09/23/24 10:55 Pulse Oximetry 09/23/24 10:55 Oxygen Delivery Room Air 09/23/24 10:55 Temperature 36.6 C 09/23/24 10:55 Pulse Rate 96 09/23/24 10:55 Respiratory Rate 16 09/23/24 10:55 Blood Pressure 136/86 09/23/24 10:55 Pulse Oximetry 100 09/23/24 10:55 Oxygen Delivery Room Air 09/23/24 10:55 Imaging Data Radiologist's impression: Right foot Technique: AP, oblique, and lateral views were obtained. Clinical History: Metatarsal pain Findings: No acute fracture or dislocation is seen. Osseous alignment is anatomic. Joint spaces are preserved without erosive or degenerative change. Soft tissues are unremarkable. Impression: Unremarkable right foot radiographs. Discharge Plan Discharge Clinical Impression: Muscle strain of right foot Patient Disposition: Home Condition: Stable Instructions: Antibiotic Form, Muscle Strain (ED) Additional Instructions: APPLICATION OF ICE, AND ELEVATION SHOULD HELP YOUR SYMPTOMS IBUPROFEN SHOULD HELP WITH PAIN AND SWELLING Patient Language: Guyanese Prescriptions: No Action No Home Medications Follow-up/Referrals: Pieter,MD Simone [Primary Care Provider] - Time of Disposition: 11:48
== END 2024-09-23 11:55 | disposition home or self-care (01) ==
PROVIDERS: Emergency Provider Nurse Practitioner; PCP Hospitalist
DX: S96.911A Strain of unspecified muscle and tendon at ankle and foot level, right foot, initial encounter (principal); W19.XXXA Unspecified fall, initial encounter
CPT/HCPCS: 73630; 99213; G0463